=== PATIENT | male | born 1955 | race Caucasian/White ===

== ENCOUNTER → 2018-09-20 | Outpatient (CLI) | payer OTHER ==
[2018-09-20] VITALS (18 sets, daily range): BP systolic 127–150; BP diastolic 38–64
[~2018-09-20] MED LIST: BYSTOLIC 5 MG5 M1 PO; COZAAR 25 MG TA25 M1 PO; PRAVACHOL20 MG PO; TAMSULOSIN HCL0.4 MG PO
[2018-09-20 10:32] LABS: HEMATOCRIT 39.8 % (42.0-52.0); HEMOGLOBIN 13.6 gm/dL (14.0-18.0); MCH 33.8 pg (26.0-34.0); MCHC 34.2 g/dL (28.0-37.0); MCV 98.9 fL (80.0-100.0); MPV 10.5 fl. (7.2-11.1); RBC 4.02 mil/uL (4.50-6.00); RDW-CV 13.7 % (10.5-14.5); WBC 7.2 thou/uL (4.0-11.0)
[2018-09-20 10:35] LABS: APTT 25.2 Seconds (25.0-31.3); INR 1.2; PROTIME 12.7 Seconds (9.20-11.50)
[2018-09-20 10:44] LABS: CREATININE 0.8 mg/dL (0.6-1.3)
[2018-09-20 10:59] LABS: ALBUMIN 2.5 g/dL (3.4-5.0); CALCIUM 8.6 mg/dL (8.5-10.1); CREATININE 0.7 mg/dL (0.6-1.3); POTASSIUM 4.1 mmol/L (3.5-5.1); TOTAL BILIRUBIN 1.5 mg/dL (<0.1-1.0); TOTAL PROTEIN 6.4 g/dL (6.4-8.2)
== END | disposition home or self-care (01) ==
LOC: M.LAB 08:44 → M.CT 10:00
PROVIDERS: Anesthesiology Pain Medicine; Radiology Diagnostic Radiology
DX: M71.38 Other bursal cyst, other site (principal); M47.816 Spondylosis without myelopathy or radiculopathy, lumbar region; I10 Essential (primary) hypertension; E78.00 Pure hypercholesterolemia, unspecified; F17.290 Nicotine dependence, other tobacco product, uncomplicated; Z79.899 Other long term (current) drug therapy; Z79.01 Long term (current) use of anticoagulants; Z96.612 Presence of left artificial shoulder joint; Z96.642 Presence of left artificial hip joint